=== PATIENT | male | born 1935 | race Caucasian/White ===

== ENCOUNTER → 2023-04-26 12:00 | Outpatient (REF) | payer MEDICARE, OTHER, SELFPAY | LOC: DHSLP 12:00 | PROVIDERS: ATTENDING PHYSICIAN Family Medicine | DX: G47.33 Obstructive sleep apnea (adult) (pediatric) (principal) | CPT/HCPCS: 95806 ==

== ENCOUNTER → 2023-08-31 15:11 | Outpatient (REF) | payer MEDICARE, OTHER, SELFPAY | LOC: RAD 15:11 | PROVIDERS: ATTENDING PHYSICIAN Family Medicine | DX: R05.9 Cough, unspecified (principal) | CPT/HCPCS: 71046 ==

== ENCOUNTER 2024-08-10 21:34 | Inpatient (IN) | payer MEDICARE, OTHER, SELFPAY ==
[2024-08-10 16:13] VITALS: BP 143/71
[2024-08-10 17:07] LABS: % Basophils 0.5 % (0-2); % Eosinophils 1.2 % (0-6); % Immature Granulocytes 0.6 % (0-0.5); % Lymphocytes 16.3 % (20.5-51.1); % Monocytes 13.5 % (1.7-9.3); % Neutrophils 67.9 % (42.2-75.2); Absolute Basophils 0.1 10^3/uL (0-0.2); Absolute Eosinophils 0.1 10^3/uL (0-0.7); Absolute Immature Granulocytes 0.1 10^3/uL (0-0.05); Absolute Lymphocytes 1.8 10^3/uL (1.2-3.4); Absolute Monocytes 1.5 10^3/uL (0.1-0.6); Absolute Neutrophils 7.5 10^3/uL (1.4-6.5); Hematocrit 42.4 % (39.0-52.0); Hemoglobin 14.1 g/dL (13.0-18.0); Mean Corp Hgb Conc. 33.3 g/dL (33.0-37.0); Mean Corpuscular Hgb 30.2 pg (27.0-31.0); Mean Corpuscular Volume 90.8 fL (80.0-94.0); Mean Platelet Volume 11.3 fL (7.4-10.4); Nucleated Red Blood Cells % 0 % (-); Platelet Count 200 10^3/uL (130-400); Red Blood Cell Count 4.67 10^6/uL (4.70-6.10); Red Cell Dist. Width 15.2 % (11.5-14.5); White Blood Cell Count 11.1 10^3/uL (4.8-10.8)
[2024-08-10 17:21] LABS: ALT (SGPT) 14 U/L (0-50); AST (SGOT) 17 U/L (17-59); Alkaline Phosphatase 76 U/L (38-126); Blood Urea Nitrogen 27 mg/dl (9-20); Calcium 9.1 mg/dl (8.4-10.2); Carbon Dioxide 27 mmol/L (22-30); Chloride 107 mmol/L (98-107); Glucose 115 mg/dl (70-99); Potassium 4.1 mmol/L (3.5-5.1); Sodium 141 mmol/L (135-145); Total Bilirubin 1.8 mg/dl (0.2-1.3); Total Protein 6.6 g/dl (6.3-8.2); eGFR 44.78
--- NOTE | 2024-08-10 19:26 | ED.GENMED ---
History of Present Illness
<Mariel Hollingsworth NP - Last Filed: 08/12/24 19:56>
General
Chief Complaint: Skin Problem
Source: patient and family (daughter)
Exam Limitations: none
Time Seen by Provider: 08/10/24 16:31
Nursing documentation reviewed up to this point in time: agreed with
History of Present Illness
History of Present Illness:
Patient to ED with complaint of redness swelling andpain to right distal 4th finger. Symptoms started 1 week ago. No history of trauma. He was seen by his PCP and placed on Keflex with out improvement after 2 days. He was switched to Omnicef, no
improvement after 2 days. PCP sent him to see a hand specialist in [place]. Surgeon recommended admission, IV antibiotics and possible surgery for suspected tenosynovitis. Patient states he did not want to be admitted in [place] so his
daughter brought him here. Denies fever/chills. No other complaints.
Past History
<Mariel Hollingsworth NP - Last Filed: 08/12/24 19:56>
Past History
ED Past Medical History: Arrthythmia, CAD, HTN, Hypercholesterolemia, Other (Back pain, paresthesias,) and Other (Asbestosis, sleep apnea,)
ED Past Surgical History: None, Cardiac, Orthopedic, Tonsilectomy and Other (Cataract)
Social History
Tobacco: Former smoker
Alcohol: None
Drug: None
Personal:
Living: with family
Review of Systems
<Mariel Hollingsworth NP - Last Filed: 08/12/24 19:56>
Review of Systems
Allergies reviewed?: Yes
All Other Systems: ROS reviewed and negative except as documented in HPI and ROS
Constitutional: Reports no symptoms
EENT: Reports no symptoms
Respiratory: Reports no symptoms
Cardiac: Reports no symptoms
ABD/GI: Reports no symptoms
: Reports no symptoms
Musculoskeletal: Reports joint pain (Pain to DIP right 4th finger. Erythema and swelling to entire finger.)
Skin: Reports no symptoms (erythema and swelling to right 4th finger)
Neurological: Reports no symptoms
Psychiatric: Reports no symptoms
Phy Exam
<Mariel Hollingsworth NP - Last Filed: 08/12/24 19:56>
General Physical Exam
General Presentation: well appearing and no apparent distress
General age: appears stated age
General Skin: warm and dry
General Habitus: normal
General Mental: alert
General Hydration: appears well hydrated
Musculoskeletal Exam
Musculoskeletal Exam: neuro vasc intact and other (Pain to right 4th finger DIP)
Skin Exam
Skin Exam: warm/dry, no rash and other (erythema and swelling to right 4th finger)
Psychiatric Exam
Psychiatric Exam: normal mood/affect
Course
<Mariel Hollingsworth NP - Last Filed: 08/12/24 19:56>
Orders/Labs/Results
Orders:
Orders
08/10/24 Breakfast
Sodium, 2 Gram
At Your Request: Limited Participation
08/10/24 16:44
C-Reactive Protein Urgent
Comment: ADD ON
Complete Blood Count/With Diff Urgent
Comprehensive Metabolic Panel Urgent
Erythrocyte Sed Rate Urgent
Comment: ADD ON
08/10/24 19:26
Vancomycin [Vancocin] 1,500 mg 0.9% Sodium Chloride 500 ml [Nss] 500 ml IV NOW
08/10/24 20:17
Add On- LAB Urgent
Tests Added?: ESR, CRP
08/10/24 20:28
Admit/Transfer Patient As Directed
Co-Sign Provider:
Level of Care: Inpatient admission
Assign to:: Medical/Surgical
Physician / Group: [facility]
Diagnosis: Cellulitis / Tenosynovitis
Reason for Hospitalization: IV abx
Expected length of stay greater than two midnights?: Yes
ELOS- Estimated Length of Stay in days: 3
I certify the patient meets the requirements for IP care: Yes
PRN Pain Medication Management As Directed
May give lesser potent ordered pain med per pt: Yes
preference::
Protocol:: Medication orders for pain may be administered in a
manner that supports deferring to patient preference
when the pt is:
- Requesting an ordered lesser potent pain medication.
Least to most potent pain medications are defined
as: acetaminophen < NSAID < tramadol < opioids
(morphine, oxycodone, hydromorphone).
- Requesting a lesser dose of the same medication IF
ORDERED.
- Requesting a less intrusive route of administration
if both routes are prescribed by the provider (PO <
IV).
08/10/24 20:33
CR Hand - Right Min 3 Views Urgent
Comment:
Reason For Exam: Swelling / Pain right 4th Finger
08/10/24 20:35
Code Status As Directed
Resuscitation Status: Do not resuscitate
Reached after discussion with pt or family/Healthcare POA: Yes
DNR Bracelet Application ONCE
08/10/24 21:05
Blood Culture Q30M
ARIANNA Source: Blood/Venous
Specimen Description:
Blood Culture Q30M
ARIANNA Source: Blood/Venous
Specimen Description:
08/10/24 22:00
Flush (0.9% Sodium Chloride) [Flush (Nss)] See Dose Instructions IV PER PROTOCOL
08/10/24 22:47
Acetaminophen [Tylenol] 650 mg PO Q4HPRN PRN
VANCOMYCIN Pharmacy to Dose [VANCOCIN Pharmacy to Dose] 1 each Pharmacy To Prepare [Call Pharmacy To Prepare] 0 ml IV PER PROTOCOL
08/10/24 22:47
ORTHOPEDIC CONSULT Routine
Consulting Provider: Jermaine Jaquez
Was physician already notified: Yes
Activity As Directed
Activity Level: Out of Bed-Early Mobility
With Assistance
Pneumatic Compression Sleeves As Directed
Type: Knee high
Vital Signs As Directed
Frequency: Per unit guidelines
Weight As Directed
Frequency: Daily
DX Deep Vein Thrombosis Video Routine
08/11/24 00:00
CefTRIAXone [Rocephin] 1,000 mg IV Q24H
08/11/24 06:27
Basic Metabolic Panel IN AM
Complete Blood Count/No Diff IN AM
08/11/24 08:00
Budesonide [Pulmicort] 0.5 mg INH R BID
Furosemide [Lasix] 120 mg PO DAILY
Guaifenesin [Mucinex] 600 mg PO BID
Metoprolol Xl [Toprol Xl] 50 mg PO BID
Pantoprazole [Protonix] 40 mg PO BID
Potassium Chloride [KCl] 40 meq PO DAILY
08/11/24 18:00
Atorvastatin [Lipitor] 40 mg PO QPM
Tamsulosin [Flomax] 0.4 mg PO QPM
Abnormal Lab Results
08/10/24
16:44
WBC 11.1 H 10^3/uL
(4.8-10.8)
RBC 4.67 L 10^6/uL
(4.70-6.10)
RDW 15.2 H %
(11.5-14.5)
MPV 11.3 H fL
(7.4-10.4)
Abs Immat Gran (auto) 0.1 H 10^3/uL
(0-0.05)
Absolute Neuts (auto) 7.5 H 10^3/uL
(1.4-6.5)
Absolute Monos (auto) 1.5 H 10^3/uL
(0.1-0.6)
Immature Gran % 0.6 H %
(0-0.5)
Lymphocytes % 16.3 L %
(20.5-51.1)
Monocytes % 13.5 H %
(1.7-9.3)
BUN 27 H mg/dl
(9-20)
Creatinine 1.5 H mg/dL
(0.7-1.3)
Glucose 115 H mg/dl
(70-99)
Total Bilirubin 1.8 H mg/dl
(0.2-1.3)
C-Reactive Protein 34.00 H mg/L
(0.0-10.00)
08/10/24 16:44
08/10/24 16:44
Vital Signs
Initial and Last Documented VS:
Initial Vital Signs
Temp Pulse Resp BP Pulse Ox
98.8 F 61 18 143/71 96
08/10/24 16:13 08/10/24 16:13 08/10/24 16:13 08/10/24 16:13 08/10/24 16:13
Last Documented Vital Signs
Temp Pulse Resp BP Pulse Ox
97.9 F 61 17 135/49 99
08/12/24 15:14 08/12/24 15:14 08/12/24 15:14 08/12/24 15:14 08/12/24 15:14
<Pj Goodrich, DO - Last Filed: 08/10/24 20:14>
Orders/Labs/Results
Orders:
Orders
08/10/24 Breakfast
Sodium, 2 Gram
At Your Request: Limited Participation
08/10/24 16:44
C-Reactive Protein Urgent
Comment: ADD ON
Complete Blood Count/With Diff Urgent
Comprehensive Metabolic Panel Urgent
Erythrocyte Sed Rate Urgent
Comment: ADD ON
08/10/24 19:26
Vancomycin [Vancocin] 1,500 mg 0.9% Sodium Chloride 500 ml [Nss] 500 ml IV NOW
08/10/24 20:17
Add On- LAB Urgent
Tests Added?: ESR, CRP
08/10/24 20:28
Admit/Transfer Patient As Directed
Co-Sign Provider:
Level of Care: Inpatient admission
Assign to:: Medical/Surgical
Physician / Group: Iman
Diagnosis: Cellulitis / Tenosynovitis
Reason for Hospitalization: IV abx
Expected length of stay greater than two midnights?: Yes
ELOS- Estimated Length of Stay in days: 3
I certify the patient meets the requirements for IP care: Yes
PRN Pain Medication Management As Directed
May give lesser potent ordered pain med per pt: Yes
preference::
Protocol:: Medication orders for pain may be administered in a
manner that supports deferring to patient preference
when the pt is:
- Requesting an ordered lesser potent pain medication.
Least to most potent pain medications are defined
as: acetaminophen < NSAID < tramadol < opioids
(morphine, oxycodone, hydromorphone).
- Requesting a lesser dose of the same medication IF
ORDERED.
- Requesting a less intrusive route of administration
if both routes are prescribed by the provider (PO <
IV).
08/10/24 20:33
CR Hand - Right Min 3 Views Urgent
Comment:
Reason For Exam: Swelling / Pain right 4th Finger
08/10/24 20:35
Code Status As Directed
Resuscitation Status: Do not resuscitate
Reached after discussion with pt or family/Healthcare POA: Yes
DNR Bracelet Application ONCE
08/10/24 21:05
Blood Culture Q30M
ARIANNA Source: Blood/Venous
Specimen Description:
Blood Culture Q30M
ARIANNA Source: Blood/Venous
Specimen Description:
08/10/24 22:00
Flush (0.9% Sodium Chloride) [Flush (Nss)] See Dose Instructions IV PER PROTOCOL
08/10/24 22:47
Acetaminophen [Tylenol] 650 mg PO Q4HPRN PRN
VANCOMYCIN Pharmacy to Dose [VANCOCIN Pharmacy to Dose] 1 each Pharmacy To Prepare [Call Pharmacy To Prepare] 0 ml IV PER PROTOCOL
08/10/24 22:47
ORTHOPEDIC CONSULT Routine
Consulting Provider: Jermaine Jaquez
Was physician already notified: Yes
Activity As Directed
Activity Level: Out of Bed-Early Mobility
With Assistance
Pneumatic Compression Sleeves As Directed
Type: Knee high
Vital Signs As Directed
Frequency: Per unit guidelines
Weight As Directed
Frequency: Daily
DX Deep Vein Thrombosis Video Routine
08/11/24 00:00
CefTRIAXone [Rocephin] 1,000 mg IV Q24H
08/11/24 06:27
Basic Metabolic Panel IN AM
Complete Blood Count/No Diff IN AM
08/11/24 08:00
Budesonide [Pulmicort] 0.5 mg INH R BID
Furosemide [Lasix] 120 mg PO DAILY
Guaifenesin [Mucinex] 600 mg PO BID
Metoprolol Xl [Toprol Xl] 50 mg PO BID
Pantoprazole [Protonix] 40 mg PO BID
Potassium Chloride [KCl] 40 meq PO DAILY
08/11/24 18:00
Atorvastatin [Lipitor] 40 mg PO QPM
Tamsulosin [Flomax] 0.4 mg PO QPM
Abnormal Lab Results
08/10/24
16:44
WBC 11.1 H 10^3/uL
(4.8-10.8)
RBC 4.67 L 10^6/uL
(4.70-6.10)
RDW 15.2 H %
(11.5-14.5)
MPV 11.3 H fL
(7.4-10.4)
Abs Immat Gran (auto) 0.1 H 10^3/uL
(0-0.05)
Absolute Neuts (auto) 7.5 H 10^3/uL
(1.4-6.5)
Absolute Monos (auto) 1.5 H 10^3/uL
(0.1-0.6)
Immature Gran % 0.6 H %
(0-0.5)
Lymphocytes % 16.3 L %
(20.5-51.1)
Monocytes % 13.5 H %
(1.7-9.3)
BUN 27 H mg/dl
(9-20)
Creatinine 1.5 H mg/dL
(0.7-1.3)
Glucose 115 H mg/dl
(70-99)
Total Bilirubin 1.8 H mg/dl
(0.2-1.3)
C-Reactive Protein 34.00 H mg/L
(0.0-10.00)
08/10/24 16:44
08/10/24 16:44
Vital Signs
Initial and Last Documented VS:
Initial Vital Signs
Temp Pulse Resp BP Pulse Ox
98.8 F 61 18 143/71 96
08/10/24 16:13 08/10/24 16:13 08/10/24 16:13 08/10/24 16:13 08/10/24 16:13
Last Documented Vital Signs
Temp Pulse Resp BP Pulse Ox
97.9 F 61 17 135/49 99
08/12/24 15:14 08/12/24 15:14 08/12/24 15:14 08/12/24 15:14 08/12/24 15:14
<Mariel Hollingsworth QC CHEMIST - Last Filed: 08/12/24 19:56>
*Critical Care Note
Total Time (30-74mins, 75-104mins- exclusive of procedures): Not Applicable
<Mariel Hollingsworth NP - Last Filed: 08/12/24 19:56>
Update Note
Update Note:
Patient to ED for eval of painful swollen right 4th finger. No improvement with keflex and omnicef. He was seen by ortho at [facility] today who recommended admission however patient wanted to come here instead. He is afebrile. Pain to right 4th
finger DIP, erythema and swelling to entire finger. No areas of fluctuance noted. ROM limited due to swelling and pain. Will admit to hospitalist service. IV antibiotics started in ED. Dr. Jaquez notified of admission and will consult with
patient. He notes that patient may require transfer to a hand surgeon/alternative facility this weekend if surgical intervention becomes necessary. Patient is aware of this and he is agreeable.
ED Attending Note
<Mariel Hollingsworth NP - Last Filed: 08/12/24 19:56>
-
Portions of this chart may have been created with voice recognition software.� Occasional wrong word or��sound alike� substitutions may have occurred due to the inherent limitations of voice recognition software.
<Pj Goodrich DO - Last Filed: 08/10/24 20:14>
ED Attending Note
Patient seen and examined by attending physician: Yes
I performed the substantive portion of visit, reviewed & personally made and approve the management plan that is documented in note by myself or LOS.: Yes
ED Attending Note:
I evaluated the patient at bedside. There is concern for flexor tenosynovitis of the right fourth digit. He has been on cephalexin then cefdinir. A hand surgeon with [facility] recommended IV antibiotics and admission to the hospital with
possible surgery. We did inform the patient that we do not necessarily have a hand specialist here and this could delay care if surgery ultimately is recommended. IV antibiotics started.
Discharge Plan
Departure
Patient Disposition: Admit
Date of Disposition: 08/10/24
Time of Disposition: 19:41
Presentation/result/management discussed w/ accepting MD/DO: Hospitalist
Patient with high blood pressure during this ER visit?: No
Condition: Fair
Covid-19: Not Applicable
Discharge Problem:
Cellulitis of finger
Interventions
Interventions:
*Risk Screen - Suicide Last Done: 08/10/24 22:48
*General Assessment Last Done: 08/10/24 16:13
*Neglect/Abuse Screening Last Done: 08/10/24 22:26
*Nursing Disposition Last Done: 08/10/24 22:26
ED-Skin Assessment Last Done: 08/10/24 17:02
Discharge Date and Time
Discharge Date/Time: 08/10/24 22:45
[2024-08-10] MEDS: VANCOCIN 530 MG IV (19:51)
--- NOTE | 2024-08-10 20:08 | HPS.HSE ---
Family Physician
-
Family Physician: Srinivas Eddy
Chief Complaint
-
Pain, Redness and Swelling on the Right 4th Finger
History of Present Illness
Patient is an 88 y/o male past medical history of CHF, A-Fib, Hypertension, COPD and Spinal Stenosis who presents with increasing redness, pain and swelling of the right hand. Patient developed redness of the tip of the right 4th finger about 5
days ago. He was started on cephalexin by his PCP on August 06. Despite oral antibiotics the finger was becoming more swollen and red. He saw his PCP yesterday August 09 at which time he changed the antibiotic to cefdinir. Patient saw a hand
surgeon today who referred him to the emergency department evaluation. Patient reports continued worsening symptoms. He denies fevers.
Medical History
Past Medical History
Past Medical History: Reports Other
Additional Past Medical History:
Chronic HFpEF
Permanent Atrial Fibrillation
Tachy-Rob Syndrome s/p Permanent Pacemaker
Essential Hypertension
Hyperlipidemia
CKD Stage III
COPD
Spinal Stenosis
GERD
BPH
Past Surgical History: Reports Other
Additional Past Surgical History:
Permanent Pacemaker
Bilateral Knee Arthroscopy
Social History
Tobacco: Former Smoker
Alcohol: None
Living: With Family
Family History
Family History: Not pertinent
Allergies / Home Medications
Allergies reflects when Allergies were last updated in [facility].
Home Medications with original date entered in [facility]
Allergy/Medication List:
Allergies
Allergy/AdvReac Type Severity Reaction Status Date / Time
losartan Allergy Unknown Verified 08/10/24 20:14
Home Medications
atorvastatin 40 mg tablet 40 mg PO QPM High cholesterol 05/16/11
potassium chloride 20 mEq tablet,extended release(part/cryst) (Klor-Con M) 40 meq PO DAILY Electrolyte Repletion 05/03/13
tamsulosin 0.4 mg capsule 0.4 mg PO QPM Urinary issue 01/03/20
cholecalciferol (vitamin D3) 50 mcg (2,000 unit) tablet 2,000 unit PO DAILY Supplement 02/09/22
budesonide 0.5 mg/2 mL suspension for nebulization 0.5 mg (2 mL) inhalation R BID Lung/breathing issues #0 mL 02/22/22
metoprolol succinate 50 mg tablet,extended release 24 hr 50 mg PO BID Arrhythmia 04/15/22
pantoprazole 40 mg tablet,delayed release 40 mg PO BID Gastrointestinal issue 04/15/22
furosemide 80 mg tablet 120 mg PO DAILY Fluid Retention/Swelling 03/25/23
guaifenesin 600 mg tablet, extended release 12 hr (Mucinex) 600 mg PO BID 03/25/23
levalbuterol tartrate 45 mcg/actuation aerosol inhaler (Xopenex HFA) 2 inh inhalation R Q6HPRN PRN sob 03/25/23
apixaban 5 mg tablet (Eliquis) 5 mg PO BID #60 tabs 04/05/23
cefdinir 300 mg capsule 300 mg PO BID 08/10/24
Review of Systems
-
A 12 point ROS was completed and negative except as noted: Yes
Constitutional: Denies Fever
Respiratory: Denies Cough or Trouble Breathing
Cardiac: Denies Chest Pain or Palpitations
Abdomen/GI: Denies Abdominal Pain, Nausea, Vomiting or Diarrhea
Physical Exam
Vital Signs
Vital Signs
Temp Pulse Resp BP Pulse Ox
98.8 F 61 18 143/71 96
08/10/24 16:13 08/10/24 16:13 08/10/24 16:13 08/10/24 16:13 08/10/24 16:13
Physical Exam
General: Comfortable and Conversant
HEENT: Anicteric and Moist mucous membranes
Respiratory: Clear and Non Labored Respirations
Cardiac: S1/S2 and Regular Rhythm; No Murmur
GI: Soft and Non Distended
Rectal: Deferred by Provider
Musculoskeletal: No Clubbing and No Cyanosis
Skin: Warm, Dry and Other (Right Hand appears erythematous and edematous with marked edema of the 4th finger; Slight decreased range of motion of the 4th finger; I reviewed pictures taken on August 06, and August 09)
Neuro: Awake, Alert, Oriented and Nonfocal/grossly intact
Psych: Calm
Laboratory Results
-
08/10/24 16:44
08/10/24 16:44
Laboratory Results
Total Bilirubin 1.8 mg/dl (0.2-1.3) H 08/10/24 16:44
AST 17 U/L (17-59) 08/10/24 16:44
ALT 14 U/L (0-50) 08/10/24 16:44
Alkaline Phosphatase 76 U/L (38-126) 08/10/24 16:44
Data Reviewed
-
Lab Data: Labs Reviewed by me
Impression/Plan
-
Right Finger/Hand Cellulitis with possible tenosynovitis of Right 4th Finger
-Consult orthopedic surgery
-Continue vancomycin and ceftriaxone
-Check blood cultures
-Check Hand/Finger X-ray
Chronic HFpEF
-Continue Lasix
-Monitor Is&Os and Daily Weights
Permanent Atrial Fibrillation
-Hold Eliquis should patient require surgical intervention
-Continue metoprolol for rate control
Essential Hypertension
-Continue metoprolol
Hyperlipidemia
-Continue atorvastatin
CKD Stage III
-Creatinine at baseline
COPD
-Continue budesonide neb BID
-Continue Xopenex prn
GERD
-Continue Protonix
BPH
-Continue Flomax
Hx Tachy-Rob Syndrome s/p Permanent Pacemaker
DVT proph: Eliquis
Code Status: DNR
[2024-08-10 20:30] LABS: Erythrocyte Sed Rate 18 mm/hour (0-20)
--- NOTE | 2024-08-10 21:37 | W.PN.UPDATE ---
Update Note
Progress Note Update
This is an addendum to the H&P written by Venus Alvarenga on 08/10/2024.� Patient seen and examined independently with PA.
88-year-old male past medical history of permanent atrial fibrillation on Eliquis, CHF, CKD 3, hypertension, BPH, GERD, COPD, presenting with right fourth finger redness and swelling progressing despite Keflex switched to cefdinir.� No fevers or
chills.
Patient had outpatient x-ray which was unremarkable.�
Patient with right fourth finger cellulitis, possible tenosynovitis.� Will try to obtain report if not then repeat x-ray.� Vancomycin/ceftriaxone.� Hold Eliquis in anticipation of potential intervention.� Ortho consulted.
--- NOTE | 2024-08-10 23:00 | PTCARENOTE ---
Pt transported from ED to 3W via wheelchair. Pt 1 assist from wheelchair to bed, uses walker @ baseline. Pt AAOX3, able to make needs known, oriented to room, call meza within reach. Vitals obtained and stable. Pt pleasant and cooperative.
[2024-08-10 23:52] VITALS: BP 182/80
[2024-08-10] MEDS: ROCEPHIN 1000 MG IV (23:56)
[2024-08-10 23:57] VITALS: BMI 30.7
[2024-08-10] MEDS: STERILE WATER FOR INJECTION 10 ML IV (23:57)
[2024-08-11 07:03] LABS: Hematocrit 37.7 % (39.0-52.0); Hemoglobin 12.2 g/dL (13.0-18.0); Mean Corp Hgb Conc. 32.4 g/dL (33.0-37.0); Mean Corpuscular Hgb 29.5 pg (27.0-31.0); Mean Corpuscular Volume 91.1 fL (80.0-94.0); Mean Platelet Volume 11.7 fL (7.4-10.4); Platelet Count 178 10^3/uL (130-400); Red Blood Cell Count 4.14 10^6/uL (4.70-6.10); Red Cell Dist. Width 14.9 % (11.5-14.5); White Blood Cell Count 9.2 10^3/uL (4.8-10.8)
[2024-08-11 07:27] LABS: Blood Urea Nitrogen 27 mg/dl (9-20); Calcium 8.4 mg/dl (8.4-10.2); Carbon Dioxide 26 mmol/L (22-30); Chloride 108 mmol/L (98-107); Estimated Creatinine Clearance 36 ml/min; Glucose 118 mg/dl (70-99); Potassium 3.4 mmol/L (3.5-5.1); Sodium 143 mmol/L (135-145); eGFR 44.78
[2024-08-11 07:28] VITALS: BP 144/64
[2024-08-11] MEDS: PULMICORT 0.5 MG INH ×2 (07:32→19:50)
--- NOTE | 2024-08-11 08:07 | PHA.VAN.IN ---
Assessment
- Assessment
Renal Function: Appears similar to baseline (pt has ckd 3)
Concomitant Antimicrobials: ceftriaxone
AUC Dosing Plan
- Dosing Variables
Dosing Weight (kg): 86.137
Dosing CrCl (ml/min): 36
Vd coefficient (L/kg): 0.6
- Empiric Dosing
Initial / Loading Dose: 1500mg
Maintenance Regimen: 1000mg q24h
Estimated AUC (mcg*h/mL): 574
Estimated Peak (mcg*h/mL): 34.5
Estimated Trough (mcg/ml): 15.7
Estimated Half Life (H): 20.2
- Monitoring
No levels ordered at this time: consider at steady state
Pharmacokinetics Vancomycin I
- -
Patient Age: 88
Patient Sex: Male
Vancomycin Day #: 1
Indication: Skin And Soft Tissue
Requesting Provider: Venus Childs
Height / Weight:
Height 5 ft 6 in
Actual Weight 86.137 kg
IBW in k.8
- Vital Signs / Lab Results
Temp Pulse Resp BP Pulse Ox
97.9 F 60 18 144/64 99
08/11/24 07:28 08/11/24 07:35 08/11/24 07:35 08/11/24 07:28 08/11/24 07:35
Lab Results - Hematology
08/10/24 08/11/24
16:44 06:27
WBC 11.1 H 9.2
Lab Results - Chemistry
08/10/24 08/11/24
16:44 06:27
BUN 27 H 27 H
Creatinine 1.5 H 1.5 H
Estimated Creat Clear 36
Albumin 4.0
--- NOTE | 2024-08-11 09:39 | W.PN.UPDATE ---
Update Note
Progress Note Update
Full orthopedic consult dictated: Patient seen with Dr. Jaquez. Discussed treatment plan with his son Stephan Nieves.
Dx: Right fourth finger pain DIP joint with cellulitis (possible tenosynovitis)
Plan: Patient is having pain and swelling about the right fourth finger especially about the DIP joint and dorsal aspect. Suggest continued treatment with ceftriaxone and vancomycin but add dilute Hibiclens soaks 4 times a day for 20 minutes.
Reevaluate finger in the tomorrow.
[2024-08-11] MEDS: LASIX 120 MG PO (09:45)
[2024-08-11] MEDS: MUCINEX 600 MG PO ×2 (09:46→20:05)
[2024-08-11] MEDS: KCL 40 MEQ PO ×2 (09:46→13:00)
[2024-08-11] MEDS: PROTONIX 40 MG PO ×2 (09:46→20:05)
[2024-08-11] MEDS: TOPROL XL 50 MG PO ×2 (09:47→20:05)
[2024-08-11 10:35] LABS: Uric Acid 10.1 mg/dl (3.5-8.5)
--- NOTE | 2024-08-11 11:33 | W.PN.HOSP.TC ---
Today's Communication/Plan
-
Continue with IV antibiotics and follow culture data
Follow for clinical improvement.
Assessment / Plan
Assessment / Plan
Right Finger/Hand Cellulitis with possible tenosynovitis of Right 4th Finger
- Appreciate orthopedic surgery input
-Continue vancomycin and ceftriaxone
-Check blood cultures
- Negative hand/Finger X-ray for osteomyelitis
Chronic HFpEF
-Continue Lasix
-Monitor Is&Os and Daily Weights
Hypokalemia-replete
Permanent Atrial Fibrillation
-Hold Eliquis should patient require surgical intervention
-Continue metoprolol for rate control
Essential Hypertension
-Continue metoprolol
Hyperlipidemia
-Continue atorvastatin
CKD Stage III
-Creatinine at baseline
COPD
-Continue budesonide neb BID
-Continue Xopenex prn
GERD
-Continue Protonix
BPH
-Continue Flomax
Hx Tachy-Rob Syndrome s/p Permanent Pacemaker
DVT proph: Eliquis
Code Status: DNR
Anticipated Discharge: > 48 hours
Subjective/Interval History
-
Date of Service: August 11, 2024
No new symptoms. Still trouble with the right fourth finger pain.
No fever or chills.
No other joints or fingers involved.
No trauma.
Objective Data
-
Labs:
Laboratory Results
08/11/24
06:27
WBC 9.2
Hgb 12.2 L
Hct 37.7 L
Plt Count 178
Sodium 143
Potassium 3.4 L
Chloride 108 H
Carbon Dioxide 26
BUN 27 H
Creatinine 1.5 H
Glucose 118 H
Calcium 8.4
Vital Signs:
Vital Signs
Temp Pulse Resp BP Pulse Ox
97.9 F 60 18 144/64 99
08/11/24 07:28 08/11/24 09:45 08/11/24 07:35 08/11/24 09:45 08/11/24 07:35
Physical Exam
-
General: Comfortable
HEENT: Moist Mucous Membranes
Respiratory: Clear to Auscultation and Non Labored Respirations; Negative Accessory Resp Muscle Use
Cardiac: Regular Rhythm and S1/S2
Musculoskeletal: No Edema and Other (Right fourth finger swollen and tender to touch and painful range of motion. There is also tenderness along the fourth metacarpal area dorsally.)
Neuro: AO x 3
Data Reviewed
-
Labs: Labs Reviewed by me
[2024-08-11 15:12] VITALS: BP 135/75
[2024-08-11] MEDS: LIPITOR 40 MG PO (17:22)
[2024-08-11] MEDS: FLOMAX 0.4 MG PO (17:22)
[2024-08-11 20:04] VITALS: BP 156/56
[2024-08-11 23:00] VITALS: BP 129/76
[2024-08-11] MEDS: ROCEPHIN 1000 MG IV (23:03)
[2024-08-11] MEDS: STERILE WATER FOR INJECTION 10 ML IV (23:03)
[2024-08-11 23:04] VITALS: BP 128/57
[2024-08-12] MEDS: VANCOCIN 200 IV (05:11)
[2024-08-12 05:25] LABS: Hematocrit 38.7 % (39.0-52.0); Hemoglobin 12.7 g/dL (13.0-18.0); Mean Corp Hgb Conc. 32.8 g/dL (33.0-37.0); Mean Corpuscular Hgb 30.4 pg (27.0-31.0); Mean Corpuscular Volume 92.6 fL (80.0-94.0); Platelet Count 184 10^3/uL (130-400); Red Blood Cell Count 4.18 10^6/uL (4.70-6.10); Red Cell Dist. Width 15.1 % (11.5-14.5); White Blood Cell Count 9.7 10^3/uL (4.8-10.8)
[2024-08-12 05:49] VITALS: BMI 29.2
[2024-08-12 05:53] LABS: Blood Urea Nitrogen 28 mg/dl (9-20); Calcium 8.7 mg/dl (8.4-10.2); Carbon Dioxide 28 mmol/L (22-30); Chloride 110 mmol/L (98-107); Estimated Creatinine Clearance 31 ml/min; Glucose 119 mg/dl (70-99); Potassium 3.6 mmol/L (3.5-5.1); Sodium 144 mmol/L (135-145); eGFR 44.78
[2024-08-12 07:00] VITALS: BMI 29.2
[2024-08-12 07:20] VITALS: BP 123/59
[2024-08-12] MEDS: LASIX 120 MG PO (07:26)
[2024-08-12] MEDS: PROTONIX 40 MG PO ×2 (07:26→20:39)
[2024-08-12] MEDS: TOPROL XL 50 MG PO ×2 (07:26→20:39)
[2024-08-12] MEDS: MUCINEX 600 MG PO ×2 (07:26→20:39)
[2024-08-12] MEDS: KCL 40 MEQ PO (07:27)
--- NOTE | 2024-08-12 07:52 | W.PN.UPDATE ---
Update Note
Progress Note Update
Patient reports that there has been some improvement in his right fourth finger swelling and pain. He is afebrile, WBC is normal and inflammatory markers are slightly elevated. Uric acid crystals are high at 10.1. Patient has multiple medical
issues so defer to medicine for treatment of gout. Continue with antibiotics and warm compresses. Observation for now. Discussed with his son Stephan and his . [id number] relays that he has had gout in his great toe in the past.
[2024-08-12] MEDS: PULMICORT 0.5 MG INH ×2 (08:30→20:03)
--- NOTE | 2024-08-12 09:04 | PHA.VAN.FU ---
Vancomycin Assessment / Plan
- Assessment
Renal Function: Stable
WBC's are: WNL
In the past 24 hrs, patient has been: Afebrile
Concomitant Antimicrobials: ceftriaxone
- Dosing Plan
Continue: vanc 1000mg q24h
- Monitoring Plan
No level(s) ordered at this time: consider in the upcoming days
- Follow Up
Pharmacy will continue to follow.
Vancomycin Follow UP
- -
Patient Age: 88
Patient Sex: Male
Vancomycin Day #: 2
Indication: Skin And Soft Tissue (R hand cellulitis)
Requesting Provider: Venus Childs
Height / Weight:
Height 5 ft 6 in
Actual Weight 81.902 kg
IBW in k.8
- Vital Signs / Lab Results
Temp Pulse Resp BP Pulse Ox
97.7 F 68 16 123/59 99
08/12/24 07:20 08/12/24 08:32 08/12/24 08:32 08/12/24 07:26 08/12/24 08:32
Lab Results - Hematology
08/10/24 08/11/24 08/12/24
16:44 06:27 04:11
WBC 11.1 H 9.2 9.7
Lab Results - Chemistry
08/10/24 08/11/24 08/12/24
16:44 06:27 04:11
BUN 27 H 27 H 28 H
Creatinine 1.5 H 1.5 H 1.5 H
Estimated Creat Clear 36 31
Albumin 4.0
Microbiology Results
08/10/24 21:05 Blood Culture - Preliminary
Blood/Venous No Growth in 24 hours- Final report to follow
08/10/24 21:05 Blood Culture - Preliminary
Blood/Venous No Growth in 24 hours- Final report to follow
--- NOTE | 2024-08-12 13:49 | W.PN.HOSP.TC ---
Today's Communication/Plan
-
CW ABX
Add Colchicine
Assessment / Plan
Assessment / Plan
Right Finger/Hand Cellulitis with possible tenosynovitis of Right 4th Finger
- Appreciate orthopedic surgery input
-Continue vancomycin and ceftriaxone
- Neg blood cultures
- Negative hand/Finger X-ray for osteomyelitis
Nontraumatic right fourth finger pain swelling and redness with failed outpatient antibiotics and elevated uric acid , ddx is gout.
Pt feeling improved and clinically also improved with abx.
PIP joint area very tender today .
As i cant rule out gout completely will add colchicine based on renal function and follow symptoms
Chronic HFpEF
-Continue Lasix
-Monitor Is&Os and Daily Weights
Hypokalemia-replete
Permanent Atrial Fibrillation
-Hold Eliquis should patient require surgical intervention
-Continue metoprolol for rate control
Essential Hypertension
-Continue metoprolol
Hyperlipidemia
-Continue atorvastatin
CKD Stage III
-Creatinine at baseline
COPD
-Continue budesonide neb BID
-Continue Xopenex prn
GERD
-Continue Protonix
BPH
-Continue Flomax
Hx Tachy-Rob Syndrome s/p Permanent Pacemaker
DVT proph: Eliquis
Code Status: DNR
Anticipated Discharge: 24 - 48 hours
Subjective/Interval History
-
Date of Service: August 12, 2024
Feels the right fourth finger is improved in color and as well as pain and swelling.
No fever or chills.
Objective Data
-
Labs:
Laboratory Results
08/12/24
04:11
WBC 9.7
Hgb 12.7 L
Hct 38.7 L
Plt Count 184
Sodium 144
Potassium 3.6
Chloride 110 H
Carbon Dioxide 28
BUN 28 H
Creatinine 1.5 H
Glucose 119 H
Calcium 8.7
Vital Signs:
Vital Signs
Temp Pulse Resp BP Pulse Ox
97.7 F 68 16 123/59 99
08/12/24 07:20 08/12/24 08:32 08/12/24 08:32 08/12/24 07:26 08/12/24 08:32
I&O
08/11/24 08/12/24 08/13/24
06:59 06:59 06:59
Intake Total 680 / 680
Output Total 1675 / 1875 200 / 200
Balance -995 / -1195 -200 / -200
Review of Systems
-
Constitutional: Denies Fever
Respiratory: Denies Trouble Breathing
Cardiac: Denies Chest Pain
Abdomen/GI: Denies Abdominal Pain, Nausea, Vomiting or Diarrhea
Neuro: Denies Dizzy
Physical Exam
-
Respiratory: Non Labored Respirations; Negative Accessory Resp Muscle Use
Cardiac: Regular Rhythm; Negative S1/S2
Musculoskeletal: Other (rt 4 finger with improved redness, swelling and tenderness. Still very tender in PIP joint area . No tenderness over the right 4 metacarpal area)
Neuro: AO x 3
Data Reviewed
-
Labs: Labs Reviewed by me
[2024-08-12] MEDS: COLCHICINE 0.6 MG PO ×2 (14:27→20:39)
[2024-08-12 15:14] VITALS: BP 135/49
[2024-08-12] MEDS: FLOMAX 0.4 MG PO (16:55)
[2024-08-12] MEDS: LIPITOR 40 MG PO (16:55)
[2024-08-12 20:36] VITALS: BP 124/51
[2024-08-12 23:00] VITALS: BP 139/61
[2024-08-12] MEDS: STERILE WATER FOR INJECTION 10 ML IV (23:16)
[2024-08-12] MEDS: ROCEPHIN 1000 MG IV (23:17)
[2024-08-13] MEDS: VANCOCIN 200 IV (05:33)
[2024-08-13 06:00] VITALS: BMI 29.4
[2024-08-13 07:05] VITALS: BP 124/54
[2024-08-13] MEDS: PULMICORT 0.5 MG INH (07:54)
--- NOTE | 2024-08-13 08:07 | W.PN.UPDATE ---
Update Note
Progress Note Update
Patient seen and examined this morning. He reports continued improvement of pain and swelling about his right ring finger. On exam there is mild redness and loss of skin wrinkles overlying the area of the DIP joint. No fluid collection. Slightly
radial of the nailbed dorsal likely small amount of tophaceous gout. Most consistent with inflammatory arthropathy. Recommend continued treatment plan.
[2024-08-13] MEDS: LASIX 120 MG PO (08:24)
[2024-08-13] MEDS: KCL 40 MEQ PO (08:26)
[2024-08-13] MEDS: PROTONIX 40 MG PO (08:26)
[2024-08-13] MEDS: MUCINEX 600 MG PO (08:26)
[2024-08-13] MEDS: TOPROL XL 50 MG PO (08:28)
[2024-08-13] MEDS: COLCHICINE 0.6 MG PO (08:28)
--- NOTE | 2024-08-13 08:36 | W.PN.HOSP.TC ---
Today's Communication/Plan
-
Discharge home today
Assessment / Plan
Assessment / Plan
Right 4th Finger pain and swelling, likely from inflammatory gout
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
- Neg blood cultures
- Negative hand/Finger X-ray for osteomyelitis
Nontraumatic right fourth finger pain swelling and redness with failed outpatient antibiotics and elevated uric acid , ddx is gout.
Pt feeling improved and clinically also improved with abx.
PIP joint much improved today
Medically stable for discharge on colchicine 0.6 mg twice a day to complete a 7-day course
He is currently on vancomycin and Rocephin -he has cefdinir at home
Recommend that he continue his cefdinir at home, will add doxycycline for 5 days
Follow-up with PCP in 1 week
Chronic HFpEF
-Continue Lasix
-Monitor Is&Os and Daily Weights
Hypokalemia-replete
Permanent Atrial Fibrillation
-Hold Eliquis should patient require surgical intervention
-Continue metoprolol for rate control
Essential Hypertension
-Continue metoprolol
Hyperlipidemia
-Continue atorvastatin
CKD Stage III
-Creatinine at baseline
COPD
-Continue budesonide neb BID
-Continue Xopenex prn
GERD
-Continue Protonix
BPH
-Continue Flomax
Hx Tachy-Rob Syndrome s/p Permanent Pacemaker
DVT proph: Eliquis
Code Status: DNR
Physical exam
Respiratory: Non Labored Respirations; Negative Accessory Resp Muscle Use
Cardiac: Regular Rhythm; Negative S1/S2
Musculoskeletal: Improving rt 4 finger redness, swelling and tenderness. No tenderness over the right 4 metacarpal area
Neuro: AO x 3
Anticipated Discharge: Today
Subjective/Interval History
-
Date of Service: August 13, 2024
Patient reports improvement in his right fourth finger pain, swelling, redness. Pain is currently 4 out of 10 in intensity. No fever, no vomiting. No chest pain, no shortness of breath.
Objective Data
-
Vital Signs:
Vital Signs
Temp Pulse Resp BP Pulse Ox
98.0 F 61 16 124/54 96
08/13/24 07:05 08/13/24 08:28 08/13/24 07:57 08/13/24 08:28 08/13/24 07:57
I&O
08/12/24 08/13/24 08/14/24
06:59 06:59 06:59
Intake Total 680 / 680 1160 / 1160
Output Total 1675 / 1875 1460 / 1460 175 / 175
Balance -995 / -1195 -300 / -300 -175 / -175
--- NOTE | 2024-08-13 10:27 | CM ---
Chart reviewed. CM met with pt at bedside. Pt admitted with cellulitis to ring finger with possible tenosynovitis;
He lives with his in ranch style home; Son and daughter in law live next door.
Has walker and cane.
Has been in rehab in [facility]. Has had [facility] but unsure of agency.
PCP - Dr Eddy
[facility]
Plan - d/c to home with ; no identified needs.
--- NOTE | 2024-08-13 12:03 | W.DCSUMMARY ---
Discharge Summary
Discharge Data
Date of Admission: 08/10/24
Date of Discharge: 08/13/24
-
Pending Results: No
Hospital Course
Discharge diagnosis:
Right fourth finger pain and swelling, likely from inflammatory gout
Possible cellulitis
Hypokalemia
Permanent atrial fibrillation on Eliquis
Chronic heart failure with a preserved ejection fraction
Essential hypertension
Stage III chronic kidney disease
Chronic obstructive pulmonary disease
History of Tachy-Rob Syndrome status post permanent pacemaker
Consults: Orthopedic surgery
R hand XR:
No radiographic evidence for an acute osseous abnormality of the right hand.
Hospital course:
88-year-old male with a past medical history of atrial fibrillation on Eliquis, CHF, CKD, hypertension, COPD, and tachy�bradycardia syndrome status post PPM who was admitted for right fourth finger pain and swelling. Patient has been taking
cefdinir for 1 day prior to admission without any improvement in his pain and swelling. He was treated with IV vancomycin and Rocephin. Patient's pain and swelling improved with the IV antibiotics.
Patient was seen in conjunction of orthopedic surgery, who suspects he has inflammatory arthritis. His uric acid was 10.1. Patient was then started on colchicine 0.6 mg twice a day. Patient's pain and swelling further improved with starting
colchicine. He likely has acute gouty arthritis. Patient is medically stable for discharge on colchicine 0.6 mg twice a day to complete a 7-day course. Although the suspicion for cellulitis is low, it is recommended that he finish his course of
cefdinir that he has at home. Doxycycline 100 mg twice a day for 5 days was also added. He needs to follow-up with his primary care doctor in 1 week.
Disposition: Home self-care
Discharge planning: Required 39 minutes
Discharge Plan
-
Patient Disposition: Home (Routine Discharge)
Discharge Diagnosis/Procedures: Probable inflammatory arthritis/gout, possible cellulitis
Condition: Fair
Diet: Low Fat and Low Cholesterol
Activity: As tolerated
Driving Restrictions: As prior to admission
Activity Restrictions/Additional Instructions:
Please finish the cefdinir you have at home.
Also take doxycycline.
The colchicine is to help with your probable gout.
You may take [id number] extra strength Tylenol, 1000 mg up to 3 times a day as needed for your pain.
Please avoid all [id number] NSAID medications such as ibuprofen, naproxen, Aleve, Motrin, Advil.
These medications will worsen your kidney function.
Follow-up with your primary care doctor in 1 week.
Instructions: Gout
Referrals:
Srinivas Eddy MD [Family Provider] - in one week
Prescriptions:
New
colchicine 0.6 mg Tablet
0.6 mg PO BID 6 Days Qty: 12 0RF
doxycycline monohydrate 100 mg tablet
100 mg PO BID 5 Days Qty: 10 0RF
Continued
atorvastatin 40 MG tablet
40 mg PO QPM
potassium chloride [Klor-Con M20] 20 MEQ tablet,ER particles/crystals
40 meq PO DAILY
tamsulosin 0.4 MG capsule
0.4 mg PO QPM
cholecalciferol (vitamin D3) 50 mcg (2,000 unit) Tablet
2,000 unit PO DAILY
budesonide 0.5 mg/2 mL Suspension For Nebulization
0.5 mg inhalation R BID Qty: 0 0RF
pantoprazole 40 mg tablet,delayed release (DR/EC)
40 mg PO BID
metoprolol succinate 50 mg tablet extended release 24 hr
50 mg PO BID
guaifenesin [Mucinex] 600 mg Tablet Extended Release 12hr
600 mg PO BID
furosemide 80 mg tablet
120 mg PO DAILY
levalbuterol tartrate [Xopenex HFA] 45 mcg/actuation Hfa Aerosol Inhaler
2 inh INHALATION R Q6HPRN PRN (Reason: sob)
Eliquis 5 mg tablet
5 mg PO BID Qty: 60 0RF
cefdinir 300 mg Capsule
300 mg PO BID
Rx Instructions:
for 10 days starting 08/09/24
Discharge Orders:
Discharge Patient (As Directed); Ordered 08/13/24
Ordered By: Randal Tarango
Discharge Date and Time
Discharge Date/Time: 08/13/24 14:55
Print Language: CAMBODIAN
[2024-08-13 14:55] VITALS: BP 145/63
== END 2024-08-13 14:55 | disposition home or self-care (01) | DRG 554 ==
LOC: 3 WEST ACU 21:34
PROVIDERS: Internal Medicine; Nurse Practitioner; Physician Assistant Medical; ADMITTING PHYSICIAN Hospitalist; ATTENDING PHYSICIAN Family Medicine; CONSULT PHYSICIAN Orthopaedic Surgery; EMERGENCY PHYSICIAN Emergency Medicine; FAMILY PHYSICIAN Family Medicine
DX: M10.9 Gout, unspecified (principal); I48.21 Permanent atrial fibrillation; I50.32 Chronic diastolic (congestive) heart failure; I13.0 Hypertensive heart and chronic kidney disease with heart failure and stage 1 through stage 4 chronic kidney disease, or unspecified chronic kidney disease; L03.011 Cellulitis of right finger; E87.6 Hypokalemia; Z79.01 Long term (current) use of anticoagulants; N18.30 Chronic kidney disease, stage 3 unspecified; J44.9 Chronic obstructive pulmonary disease, unspecified; Z95.0 Presence of cardiac pacemaker; I49.5 Sick sinus syndrome; M48.00 Spinal stenosis, site unspecified; K21.9 Gastro-esophageal reflux disease without esophagitis; N40.0 Benign prostatic hyperplasia without lower urinary tract symptoms; Z87.891 Personal history of nicotine dependence; Z66 Do not resuscitate; I25.10 Atherosclerotic heart disease of native coronary artery without angina pectoris; E78.00 Pure hypercholesterolemia, unspecified; G47.30 Sleep apnea, unspecified
CPT/HCPCS: 73130; 80048; 80053; 84550; 85025; 85027; 85652; 86140; 87040; 94640; 96365; 96366; 99284